=== PATIENT | male | born 1995 | race Caucasian/White ===

== ENCOUNTER 2020-06-06 02:52 | Emergency (ER) | payer SELFPAY ==
[~2020-06-06] VITALS: Ht 180.3 cm; Wt 68.5 kg
[2020-06-06 03:00] VITALS: BP 147/98
--- NOTE | 2020-06-06 03:05 | NUR ---
DR. OH AT BEDSIDE FOR EVALUATION
--- NOTE | 2020-06-06 03:25 | NUR ---
Patient eloped from facility. ER MD notified.
== END 2020-06-06 03:30 | disposition left against medical advice (07) ==
LOC: ER 02:57
DX: F19.10 Other psychoactive substance abuse, uncomplicated (principal)